=== PATIENT | male | born 1940 | race Two or more races ===

== ENCOUNTER 2016-08-01 17:45 | Emergency (ER) | payer MEDICAID, MEDICARE, OTHER ==
[~2016-08-01] VITALS: Ht 165.1 cm; Wt 58.4 kg
[2016-08-01 18:33] LABS: BLOOD UREA NITROGEN 21 mg/dL (7-18)
[2016-08-01] MEDS ORDERED: TRAM50TA2 PO (18:40)
[2016-08-01] MEDS ORDERED: UBID100C11 PO (18:40)
[2016-08-01] MEDS ORDERED: TAMS-11 PO (18:40)
[2016-08-01] MEDS ORDERED: MULT-516 PO (18:40)
[2016-08-01] MEDS ORDERED: SIMV10TA3 PO (18:40)
[2016-08-01] MEDS ORDERED: VITA200C7 PO (18:40)
[2016-08-01] MEDS ORDERED: GINK120C PO (18:40)
[2016-08-01] MEDS ORDERED: OXYB5TAB7 PO (18:40)
[2016-08-01] MEDS ORDERED: ASPI-515 PO (18:40)
[2016-08-01] MEDS ORDERED: CEPH-375 PO (18:40)
[2016-08-01] MEDS ORDERED: OMEG1CAP12 PO (18:40)
[2016-08-01] MEDS ORDERED: HYDR-882 PO (18:40)
[2016-08-01] MEDS ORDERED: DICL25TA PO (18:40)
[2016-08-01 19:26] VITALS: BP 122/78
== END 2016-08-01 19:31 | disposition home or self-care (01) ==
LOC: ED 19:06
DX: M79.672 Pain in left foot (principal); M79.89 Other specified soft tissue disorders
CPT/HCPCS: 36415; 80048; 82040; 85025; 99285

== ENCOUNTER 2017-01-13 17:24 | Emergency (ER) | payer MEDICARE ==
[~2017-01-13] VITALS: Ht 160 cm; Wt 58.6 kg
[2017-01-13 17:27] VITALS: BP 125/71
== END 2017-01-13 20:53 ==
LOC: ED 18:06
DX: Z02.9 Encounter for administrative examinations, unspecified (principal)

== ENCOUNTER → 2017-01-13 | Outpatient (CLI) | payer MEDICARE ==
[~2017-01-13] MED LIST: ASPI-515 PO; CEPH-375 PO; DICL25TA PO; GINK120C PO; HYDR-882 PO; MULT-516 PO; OMEG1CAP23 PO; OXYB5TAB7 PO; SIMV10TA3 PO; TAMS-11 PO; TRAM50TA2 PO; UBID100C41 PO; VITA200C7 PO
== END | disposition home or self-care (01) ==
LOC: RAD 17:00
PROVIDERS: ATTEND Internal Medicine
DX: M79.604 Pain in right leg (principal)

== ENCOUNTER → 2017-02-05 | Outpatient (CLI) | payer MEDICARE | END | disposition home or self-care (01) | LOC: CFH 11:58 | PROVIDERS: ATTEND Family Medicine | DX: K40.90 Unilateral inguinal hernia, without obstruction or gangrene, not specified as recurrent (principal); R60.0 Localized edema | CPT/HCPCS: 76857 ==